=== PATIENT | male | born 1975 | race Caucasian/White ===

== ENCOUNTER 2022-04-09 19:12 | Emergency (ER) | payer OTHER ==
[2022-04-09] MEDS ORDERED: IBUPROFEN600 MG PO (19:28)
[2022-04-09] MEDS ORDERED: CLINDAMYCIN HC300 MG PO (19:28)
== END 2022-04-09 19:36 | disposition home or self-care (01) ==
LOC: ER1 19:12
DX: K08.89 Other specified disorders of teeth and supporting structures (principal); Z87.891 Personal history of nicotine dependence; Z88.0 Allergy status to penicillin
CPT/HCPCS: 99283